=== PATIENT | female | born 1970 | race Two or more races ===

== ENCOUNTER 2019-05-10 10:31 | Emergency (ER) | payer SELFPAY ==
[~2019-05-10] VITALS: Ht 162.6 cm; Wt 111.1 kg
[2019-05-10 11:59] VITALS: BP 147/85
== END 2019-05-10 14:00 | disposition home or self-care (01) ==
LOC: ER 10:35
DX: S76.911A Strain of unspecified muscles, fascia and tendons at thigh level, right thigh, initial encounter (principal); M25.562 Pain in left knee; Z88.0 Allergy status to penicillin; W01.0XXA Fall on same level from slipping, tripping and stumbling without subsequent striking against object, initial encounter; Y93.89 Activity, other specified; Y92.512 Supermarket, store or market as the place of occurrence of the external cause; Y99.8 Other external cause status